=== PATIENT | female | born 1955 | race Caucasian/White ===

== ENCOUNTER 2018-12-19 15:06 | Emergency (ER) | payer OTHER ==
[2018-12-19] MEDS ORDERED: HYDROCODONE/APAP 10/325 TAB ONE (15:47)
--- NOTE | 2018-12-19 15:56 | RAD REPORT ---
EXAM DESCRIPTION: CT - Head Brain Wo Cont - 12/19/2018 3:48 pm CLINICAL HISTORY: Fall, left-sided head trauma COMPARISON: None. TECHNIQUE: Axial 5 mm thick images of the head were obtained without IV contrast. All CT scans are performed using dose optimization technique as appropriate and may include automated exposure control or mA/KV adjustment according to patient size. FINDINGS: No intracranial hemorrhage, mass, edema or shift of mid-line structures. No acute infarcti on changes seen. No abnormal extra-axial fluid collections. Ventricles are normal. Physiologic calcif ications are present. Mastoid air cells are clear. Air-fluid level is present in the right maxillary sinus. This is not true pected to be trauma related. History indicates left-sided head trauma. No acute bony findings. Left deviation of the nasal septum. IMPRESSION: No hemorrhage, edema or acute intracranial finding. Small air-fluid level in the right maxillary sinus. This is probably preexisting sinusitis. Trauma hi story was indicated on the left side.
--- NOTE | 2018-12-19 16:31 | RAD REPORT ---
EXAM DESCRIPTION: RAD - Shoulder Left 2 View - 12/19/2018 4:22 pm CLINICAL HISTORY: Fall, left-sided chest and shoulder pain COMPARISON: None. TECHNIQUE: Internal and external rotation views of the left shoulder were obtained. FINDINGS: An oblique fracture is present through the greater tuberosity. 1- 2 mm of distraction note d along the inferior margin. There is questionable transverse fracture along the surgical neck seen o nly on the internal rotation view. A 5-6 millimeter calcification is present believed to be part of c alcific tendinosis rather than an acute bone avulsion. AC joint is normal in appearance. No acute or suspicious findings. IMPRESSION: Proximal left humerus fracture across the greater tuberosity with suspected transverse f racture at the surgical neck.
--- NOTE | 2018-12-19 16:32 | RAD REPORT ---
EXAM DESCRIPTION: RAD - Humerus Left - 12/19/2018 4:22 pm CLINICAL HISTORY: Fall, left-sided shoulder chest and arm pain COMPARISON: None. FINDINGS: Proximal humerus fracture is detailed on the left shoulder report. There is no dislocation . Shaft and distal humerus are intact. No gross abnormality of the elbow joint. No significant rib or lung parenchymal finding. IMPRESSION: Proximal left humerus fracture is present detailed on left shoulder report. Remainder the humerus is intact.
--- NOTE | 2018-12-19 16:36 | ER ---
Nurse's Notes [facility] Name: Yisel Batista Age: 63 yrs Sex: Female : 1955 Arrival Date: 12/19/2018 Time: 15:08 Bed 14 Private MD: Jace Fraga Diagnosis: Displaced fracture of greater tuberosity of left humerus-with suspected transverse fracture at the surgical neck;Superficial injury of head;Acute sinusitis Presentation: 12/19 15:12 Presenting complaint: Patient states: "I fell down two small steps and I landed on my aa5 left side and hit my left cheondoism on the vacuum immersion metal cleaner". Pt denies LOC. Pt c/o left shoulder pain radiating to left elbow. 15:12 Transition of care: patient was not received from another setting of care. Onset of aa5 symptoms was December 19, 2018 at 14:00. Risk Assessment: Do you want to hurt yourself or someone else? Patient reports no desire to harm self or others. Initial Sepsis Screen: Does the patient meet any 2 criteria? No. Patient's initial sepsis screen is negative. Does the patient have a suspected source of infection? No. Patient's initial sepsis screen is negative. Care prior to arrival: None. 15:12 Acuity: TADEO 3 aa5 15:12 Method Of Arrival: Wheelchair aa5 15:20 Mechanism of Injury: Fall down 2 steps. Trauma event details: Injury occurred in the [address] Triage Assessment: 15:21 General: Appears in no apparent distress. Behavior is calm, cooperative, appropriate [facility]. Pain: Complains of pain in LEFT shoulder. Trauma Activation: Not Applicable Physician: ED Physician; Name: ; Notified At: ; Arrived At: Physician: General Surgeon; Name: ; Notified At: ; Arrived At: Physician: Radiology; Name: ; Notified At: ; Arrived At: Physician: Respiratory; Name: ; Notified At: ; Arrived At: Physician: Lab; Name: ; Notified At: ; Arrived At: Historical: - Allergies: 15:12 No Known Allergies; aa5 - Home Meds: 15:12 Lipitor Oral [Active]; Lunesta oral oral [Active]; aa5 - PMHx: 15:12 Atrial Fib; aa5 - PSHx: 15:12 heart ablation; Hysterectomy; aa5 - Social history:: Smoking status: . - Immunization history: Last tetanus immunization: - up to date. - Ebola Screening: : Patient denies travel to an Ebola-affected area in the 21 days before illness onset. Screenin:13 Abuse screen: Denies threats or abuse. Nutritional screening: No deficits noted. tw2 Tuberculosis screening: No symptoms or risk factors identified. Fall Risk None identified. Primary Survey: 15:19 NO uncontrolled hemorrhage observed. A: The patient is alert. Airway: patent, No tw2 supplemental oxygen in use on arrival. Breathing/Chest: Respiratory pattern: regular, Respiratory effort: spontaneous, unlabored, Breath sounds: clear. Circulation: Heart tones present. Skin temperature: warm, dry. Disability Alert. Exposure/Environment: There is no evidence of uncontrolled external bleeding. Obvious injury(ies) are noted at this time: redness noted to LEFT cheondoism, pt c/o LEFT shoulder pain. 16:57 Reassessment Airway Airway Breathing/Chest Respiratory pattern Regular Respiratory tw2 effort Spontaneous Unlabored Breath sounds Clear Chest inspection Symmetrical Circulation Heart tones Present Color [place] Temperature Warm Dry Disability Alert. Secondary Survey: 16:58 HEENT: Eyes: Edema noted left eyebrow and left upper eyelid. Gastrointestinal: No tw2 deficits noted. : No signs and/or symptoms were reported regarding the genitourinary system. Musculoskeletal: Range of motion: limited in left shoulder. Injury Description: Abrasion sustained to left knee is no bleeding noted. Assessment: 15:11 General: Appears in no apparent distress. Behavior is calm, cooperative, appropriate tw2 for age. Pain: Complains of pain in left shoulder and left upper eyelid and left eyebrow. Neuro: Level of Consciousness is awake, alert, obeys commands, Oriented to person, place, time, situation. Cardiovascular: Denies chest pain, shortness of breath, Heart tones S1 S2 Capillary refill < 3 seconds Patient's skin is warm and dry. Respiratory: Airway is patent Respiratory effort is even, unlabored, Respiratory pattern is regular, symmetrical, Breath sounds are clear bilaterally. GI: No signs and/or symptoms were reported involving the gastrointestinal system. : No signs and/or symptoms were reported regarding the genitourinary system. EENT: Eyes bruising and swelling noted to left eye brow. Derm: No signs and/or symptoms reported regarding the dermatologic system. Musculoskeletal: Circulation, motion, and sensation intact. 17:19 Reassessment: Patient appears in no apparent distress at this time. No changes from tw2 previously documented assessment. Patient and/or family updated on plan of care and expected duration. Pain level reassessed. Patient is alert, oriented x 3, equal unlabored respirations, skin warm/dry/pink. Vital Signs: 15:12 BP 147 / 82; Pulse 80; Resp 16 S; Temp 98.0(TE); Pulse Ox 99% on R/A; Weight 72.57 kg aa5 (R); Height 5 ft. 4 in. (162.56 cm) (R); Pain 8/10; 16:42 BP 140 / 102; Pulse 71; Resp 17; Pulse Ox 98% on R/A; tw2 15:12 Body Mass Index 27.46 (72.57 kg, 162.56 cm) aa5 Alexia Coma Score: 15:20 Eye Response: spontaneous(4). Verbal Response: oriented(5). Motor Response: obeys tw2 commands(6). Total: 15. Trauma Score (Adult): 15:20 Eye Response: spontaneous(1); Verbal Response: oriented(1); Motor Response: obeys tw2 commands(2); Systolic BP: > 89 mm Hg(4); Respiratory Rate: 10 to 29 per min(4); Alexia Score: 15; Trauma Score: 12 ED Course: 15:08 Patient arrived in ED. rg4 15:09 Jace Fraga MD is Private Physician. rg4 15:11 Alma Wilder, RN is Primary Nurse. tw2 15:12 Bed in low position. Call light in reach. Adult w/ patient. animal surgeon on. Pulse tw2 ox on. NIBP on. Warm blanket given. 15:12 Arm band placed on. tw2 15:15 Edis Mahajan NP is PHCP. pm1 15:15 James Llamas MD is Attending Physician. pm1 15:18 Triage completed. aa5 15:21 Patient maintains SpO2 saturation greater than 95% on room air. Thermoregulation: warm tw2 blanket given to patient. 15:47 CT completed. Patient tolerated procedure well. Patient moved to CT via wheelchair. sj Patient moved to radiology Patient moved back from CT. 15:49 CT Head Brain wo Cont In Process Unspecified. EDMS 16:22 Shoulder Left (2 View) XRAY In Process Unspecified. EDMS 16:22 Humerus Left XRAY In Process Unspecified. EDMS 16:32 Uziel Zamora MD is Referral Physician. pm1 16:57 Awaiting for x-ray, Awaiting: reports at this time for pt to take to ortho . tw2 17:02 No provider procedures requiring assistance completed. Patient did not have IV access tw2 during this emergency room visit. Administered Medications: 15:38 Drug: [place] 10 mg-325 mg 1 tabs Route: PO; tw2 16:37 Follow up: Response: No adverse reaction ss Intake: 16:59 PO: 30ml (Water); Total: 30ml. tw2 Outcome: 16:35 Discharge ordered by . pm1 16:57 Condition: stable tw2 16:57 Patient's length of stay in the Emergency Department was greater than 2 hours. d/t imagingPatient's length of stay extended due to 17:18 Discharged to home ambulatory, with significant other. tw2 17:18 Discharge instructions given to patient, significant other, Instructed on discharge instructions, follow up and referral plans. no drinking with medication, no driving heavy equipment, medication usage, Demonstrated understanding of instructions, follow-up care, medications. 17:19 Patient left the ED. tw2 Signatures: Dispatcher [employer] Tory Colbert Audri, RN RN aa5 Zayda Mike RN RN ss Edis Mahajan, MICROELECTRONICS TECHNICIAN MICROELECTRONICS TECHNICIAN pm1 Alma Wilder RN RN tw2 Brielle Martinez rg4
--- NOTE | 2018-12-19 16:36 | EDPHYS ---
Physician Documentation [facility] Name: Yisel Batista Age: 63 yrs Sex: Female : 1955 Arrival Date: 12/19/2018 Time: 15:08 Bed 14 Private MD: Jace Fraga ED Physician James Llamas HPI: 12/19 15:41 This 63 yrs old Female presents to ER via Wheelchair with complaints of Fall pm1 Injury. 15:41 Details of fall: The patient fell from an upright position, while walking. Onset: The pm1 symptoms/episode began/occurred just prior to arrival. Associated injuries: The patient sustained outer aspect of left eyebrow, contusion, hematoma, anterior aspect of left shoulder, pain, left knee, abrasion. Severity of symptoms: in the emergency department the symptoms are unchanged. The patient has not experienced similar symptoms in the past. The patient has not recently seen a physician. Patient was walking out the porch and tripped down two stairs. She hit her head against the [employer] vacuum waste cotton cleaner and landed on her left side. Complaining of pain to left shoulder . Historical: - Allergies: 15:12 No Known Allergies; aa5 - Home Meds: 15:12 Lipitor Oral [Active]; Lunesta oral oral [Active]; aa5 - PMHx: 15:12 Atrial Fib; aa5 - PSHx: 15:12 heart ablation; Hysterectomy; aa5 - Social history:: Smoking status: . - Immunization history: Last tetanus immunization: - up to date. - Ebola Screening: : Patient denies travel to an Ebola-affected area in the 21 days before illness onset. ROS: 15:41 Constitutional: Negative for fever, chills, and weight loss, Eyes: Negative for injury, pm1 pain, redness, and discharge, ENT: Negative for injury, pain, and discharge, Neck: Negative for injury, pain, and swelling, Cardiovascular: Negative for chest pain, palpitations, and edema, Respiratory: Negative for shortness of breath, cough, wheezing, and pleuritic chest pain, Abdomen/GI: Negative for abdominal pain, nausea, vomiting, diarrhea, and constipation, Back: Negative for injury and pain, : Negative for injury, bleeding, discharge, and swelling. 15:41 Neuro: Negative for headache, weakness, numbness, tingling, and seizure. 15:41 MS/extremity: Positive for pain, of the anterior aspect of left shoulder. 15:41 Skin: Positive for ecchymosis, swelling, of the outer aspect of left eyebrow. Exam: 15:41 Constitutional: This is a well developed, well nourished patient who is awake, alert, pm1 and in no acute distress. Head/Face: Normocephalic, atraumatic. Eyes: Pupils equal round and reactive to light, extra-ocular motions intact. Lids and lashes normal. Conjunctiva and sclera are non-icteric and not injected. Cornea within normal limits. Periorbital areas with no swelling, redness, or edema. ENT: Nares patent. No nasal discharge, no septal abnormalities noted. Tympanic membranes are normal and external auditory canals are clear. Oropharynx with no redness, swelling, or masses, exudates, or evidence of obstruction, uvula midline. Mucous membranes moist. Neck: Trachea midline, no thyromegaly or masses palpated, and no cervical lymphadenopathy. Supple, full range of motion without nuchal rigidity, or vertebral point tenderness. No Meningismus. Chest/axilla: Normal chest wall appearance and motion. Nontender with no deformity. No lesions are appreciated. Cardiovascular: Regular rate and rhythm with a normal S1 and S2. No gallops, murmurs, or rubs. Normal PMI, no JVD. No pulse deficits. Respiratory: Lungs have equal breath sounds bilaterally, clear to auscultation and percussion. No rales, rhonchi or wheezes noted. No increased work of breathing, no retractions or nasal flaring. Abdomen/GI: Soft, non-tender, with normal bowel sounds. No distension or tympany. No guarding or rebound. No evidence of tenderness throughout. Back: No spinal tenderness. No costovertebral tenderness. Full range of motion. 15:41 Musculoskeletal/extremity: Extremities: grossly normal except: noted in the proximal aspect of left humerus: pain, tenderness, There is no evidence of deformity. 15:41 Skin: Appearance: normal except for affected area, injury, contusion(s), that are superficial, of the outer aspect of left eyebrow. 15:41 Neuro: Orientation: is normal, Motor: is normal, moves all fours. Vital Signs: 15:12 BP 147 / 82; Pulse 80; Resp 16 S; Temp 98.0(TE); Pulse Ox 99% on R/A; Weight 72.57 kg aa5 (R); Height 5 ft. 4 in. (162.56 cm) (R); Pain 8/10; 16:42 BP 140 / 102; Pulse 71; Resp 17; Pulse Ox 98% on R/A; tw2 15:12 Body Mass Index 27.46 (72.57 kg, 162.56 cm) aa5 Alexia Coma Score: 15:20 Eye Response: spontaneous(4). Verbal Response: oriented(5). Motor Response: obeys tw2 commands(6). Total: 15. Trauma Score (Adult): 15:20 Eye Response: spontaneous(1); Verbal Response: oriented(1); Motor Response: obeys tw2 commands(2); Systolic BP: > 89 mm Hg(4); Respiratory Rate: 10 to 29 per min(4); [place] Score: 15; Trauma Score: 12 MDM: 15:27 Patient medically screened. pm1 16:31 Data reviewed: vital signs. Data interpreted: Pulse oximetry: on room air is 99 %. pm1 Interpretation: normal. Counseling: I had a detailed discussion with the patient and/or guardian regarding: the historical points, exam findings, and any diagnostic results supporting the discharge/admit diagnosis, radiology results, the need for outpatient follow up, for definitive care, a orthopedic surgeon, to return to the emergency department if symptoms worsen or persist or if there are any questions or concerns that arise at home. 12/19 15:37 Order name: Shoulder Left (2 View) XRAY; Complete Time: 16:40 pm1 12/19 15:37 Order name: CT Head Brain wo Cont; Complete Time: 16:06 pm1 12/19 15:37 Order name: Humerus Left XRAY; Complete Time: 16:40 pm1 12/19 15:37 Order name: Shoulder Immobilizer; Complete Time: 16:37 pm1 Administered Medications: 15:38 Drug: [place] 10 mg-325 mg 1 tabs Route: PO; tw2 16:37 Follow up: Response: No adverse reaction ss Disposition: 12/20 07:14 Co-signature as Attending Physician, James Llamas MD I agree with the assessment and kdr plan of care. Disposition: 12/19/18 16:35 Discharged to Home. Impression: Displaced fracture of greater tuberosity of left humerus - with suspected transverse fracture at the surgical neck, Superficial injury of head, Acute sinusitis. - Condition is Stable. - Discharge Instructions: Humerus Fracture Treated With Immobilization, How to Use a Shoulder Immobilizer, Sinusitis, Adult. - Prescriptions for Tylenol- Codeine #3 300-30 mg Oral Tablet - take 2 tablets by ORAL route every 6 hours As needed; 20 tablet. Amoxicillin 500 mg Oral Capsule - take 1 capsule by ORAL route every 8 hours for 10 days; 30 tablet. - Medication Reconciliation Form, Thank You Letter, Antibiotic Education, Prescription Opioid Use form. - Follow up: Emergency Department; When: As needed; Reason: Worsening of condition. Follow up: Uziel Zamora MD; When: 2 - 3 days; Reason: Recheck today's complaints, Continuance of care, Re-evaluation by your physician. - Problem is new. - Symptoms have improved. Signatures: Dispatcher [employer] EDMS James Llamas MD MD [facility] Stephanie Marcelo RN RN aa5 Edis Mahajan NP SPEECH SCIENTIST pm1 Alma Wilder RN RN tw2 Zayda Mike RN ss Corrections: (The following items were deleted from the chart) 12/19 16:40 16:35 12/19/2018 16:35 Discharged to Home. Impression: Displaced fracture of greater pm1 tuberosity of left humerus - mildly displaced. Condition is Stable. Forms are Medication Reconciliation Form, Thank You Letter, Antibiotic Education, Prescription Opioid Use. Follow up: Emergency Department; When: As needed; Reason: Worsening of condition. Follow up: Uziel Zamora; When: 2 - 3 days; Reason: Recheck today's complaints, Continuance of care, Re-evaluation by your physician. Problem is new. Symptoms have improved. pm1 16:42 16:40 12/19/2018 16:35 Discharged to Home. Impression: Displaced fracture of greater pm1 tuberosity of left humerus - mildly displaced; Superficial injury of head; Acute sinusitis. Condition is Stable. Discharge Instructions: Humerus Fracture Treated With Immobilization, How to Use a Shoulder Immobilizer, Sinusitis, Adult. Prescriptions for Tylenol-Codeine #3 300-30 mg Oral Tablet - take 2 tablets by ORAL route every 6 hours As needed; 20 tablet, Amoxicillin 500 mg Oral Capsule - take 1 capsule by ORAL route every 8 hours for 10 days; 30 tablet. and Forms are Medication Reconciliation Form, Thank You Letter, Antibiotic Education, Prescription Opioid Use. Follow up: Emergency Department; When: As needed; Reason: Worsening of condition. Follow up: Uziel Zamora; When: 2 - 3 days; Reason: Recheck today's complaints, Continuance of care, Re-evaluation by your physician. Problem is new. Symptoms have improved. pm1 17:19 16:42 12/19/2018 16:35 Discharged to Home. Impression: Displaced fracture of greater tw2 tuberosity of left humerus - with suspected transverse fracture at the surgical neck; Superficial injury of head; Acute sinusitis. Condition is Stable. Discharge Instructions: Humerus Fracture Treated With Immobilization, How to Use a Shoulder Immobilizer, Sinusitis, Adult. Prescriptions for Tylenol-Codeine #3 300-30 mg Oral Tablet - take 2 tablets by ORAL route every 6 hours As needed; 20 tablet, Amoxicillin 500 mg Oral Capsule - take 1 capsule by ORAL route every 8 hours for 10 days; 30 tablet. and Forms are Medication Reconciliation Form, Thank You Letter, Antibiotic Education, Prescription Opioid Use. Follow up: Emergency Department; When: As needed; Reason: Worsening of condition. Follow up: Uziel Zamora; When: 2 - 3 days; Reason: Recheck today's complaints, Continuance of care, Re-evaluation by your physician. Problem is new. Symptoms have improved. pm1
== END 2018-12-19 17:19 | disposition home or self-care (01) ==
LOC: ER 15:06
DX: S42.252A Displaced fracture of greater tuberosity of left humerus, initial encounter for closed fracture (principal); S00.90XA Unspecified superficial injury of unspecified part of head, initial encounter; W10.8XXA Fall (on) (from) other stairs and steps, initial encounter; Y93.01 Activity, walking, marching and hiking; J01.90 Acute sinusitis, unspecified
CPT/HCPCS: 70450; 99285

== ENCOUNTER 2021-04-19 10:06 | Emergency (ER) | payer OTHER ==
--- OUTSIDE RECORDS SUMMARY | 2021-04-19 10:09 | XMS REPORT | Continuity of Care Document ---
:1955 Author Organization [facility] t Address [address] [place] [address] Care Team Providers Name Role Phone Addy Fraga MD Primary Care Physician Brice RUFF Attending Clinician Vince RUFF, José Manuel Attending Clinician Payers Payer Name Policy Type Policy Number Effective Date Expiration Date S ource Problems This patient has no known problems. Allergies, Adverse Reactions, Alerts Allergy Allergy Status Severity Reaction(s) Onset Inactive Treating Comm ents Source Name Type Date Date Clinician SURGICAL DA Active SV 2018-10 [facility] TAPE/ 2-13 Clear GLUE 00:00: Null 00 [facility] Adhesive Propensi Active Itching, 2018-10 Adhesive [place] Tape-Debby ty to Rash 2-09 tapes and Metho di icones adverse 00:00: ekg st reaction 00 electrode s to s causes drug bad rash Social History Social Habit Start Date Stop Date Quantity Comments Source Sex Assigned At [birth year] [facility] 00:00:00 00:00:00 Medications Ordered Filled Start Stop Current Ordering Indication Dosage Frequency Signature Comments Components Source Medication Medication Date Date Medication? Clinician (SIG) Name Name calcium 2018-10 Yes 1{tbl} QD Take 1 [place] carbonate/v 2-10 tablet by Met vickii itamin D3 14:17: mouth st (CALCIUM 02 daily. 600 + D,3, ORAL) cholecalcif 2018-10 Yes 2000U QD Take 2,000 [facility] estrada, 2-10 Units by Methodi vitamin D3, 14:17: mouth st (VITAMIN 02 daily. D3) 2,000 unit tablet Lactobac 2018-10 Yes 1{tbl} QD Take 1 [place] no.41/Bifid 2-10 tablet by Met vickii obact no.7 14:17: mouth st (PROBIOTIC- 02 daily. 10 ORAL) KRILL OIL 2018-10 Yes 700mg QD Take [address] ORAL 2-10 mg by Methodi 14:17: mouth st 02 daily. multivitami 2018-10 Yes 1{tbl} QD Take 1 [place] with 2-10 tablet by [facility] minerals 14:17: mouth st tablet 02 daily. biotin 2018-10 Yes 1{capsu Take 1 [place] 10,000 mcg 2-10 le} capsule by Met vickii capsule 14:17: mouth. st 02 FOLIC ACID 2018-10 Yes 800ug QD Take 800 [place] ORAL 2-10 mcg by Methodi 14:17: mouth st 02 daily. magnesium 2018-10 Yes 1{tbl} QD Take 1 [place] 250 mg 2-10 tablet by Methodi tablet 14:17: mouth st 02 daily. atorvastati 2018-10 Yes 10mg QD Take 10 mg [place] n (LIPITOR) 2-10 by mouth Meth shamika 10 MG 14:17: daily. st tablet 02 etodolac 2018-10 Yes 500mg Take 500 [place] (LODINE XL) 2-10 mg by Methodi 500 MG 24 14:17: mouth as st hr tablet 02 needed. eszopiclone 2018-10 Yes 1.5mg QD Take 1.5 [place] (LUNESTA) 3 2-10 mg by Methodi mg tablet 14:17: mouth st 02 nightly. Take immediatel y before bedtime aspirin 2018-10 Yes 81mg Take 81 mg [place] (ECOTRIN) 2-10 by mouth. Metho di 81 MG 14:17: Taking st enteric 02 every 3rd coated day tablet coenzyme 2018-10 Yes 200mg QD Take 200 [place] Q10 200 mg 2-10 mg by Methodi capsule 14:17: mouth st 02 daily. Procedures This patient has no known procedures. Encounters Start End Encounter Admission Attending Care Care Encounter Source Date/Time Date/Time Type Type Clinicians Facility Department ID 2020-11-16 2020-11-16 Emergency CHERYL Narvaez [id number] 07:29:00 16:50:00 Kareem Ayers [id number] [place] [id number] [place] [id number] 2020-08-17 2020-08-17 Office CLARK Clarke [id number] 09:13:26 10:39:12 Visit Aracely Georges AMBULATOR [id number] Y [id number] Results Test Description Test Time Test Comments Results Result Comments Source HGB HCT 2019-09-17 05:08:00 Test Item Value Reference Range Interpretation Comme nts HEMOGLOBIN (test code = HGB) 12.5 g/dL 10.7-13.9 N HEMATOCRIT (test code = HCT) 38.6 % 32.1-42.1 N AB HIV 1 12:44:00 Test Item Value Reference Range Interpretation Comments AB HIV 1 2 (test code = NONREACTIVE INDEX NONREACTIVE [id number]) IS CONSENT FORM SIGNED FOR HIV TESTING? YAG HEPATITIS B [id number] 12:44:00 Test Item Value Reference Range Interpretation Comments AG HEPATITIS B SURFACE (test code NONREACTIVE NONREACTIVE = HBSAG) IS CONSENT FORM SIGNED FOR HIV TESTING? YAB HEPATITIS C [id number] 12:44:00 Test Item Value Reference Range Interpretation Comments AB HEPATITIS C (test code = NONREACTIVE NONREACTIVE HCVAB) SIGNAL TO CUTOFF (test code = 0.02 <0.80 N CUTOFF) IS CONSENT FORM SIGNED FOR HIV TESTING? YAB HIV 1 12:44:00 Test Item Value Reference Range Interpretation Comments AB HIV 1 2 (test code = NONREACTIVE INDEX NONREACTIVE [id number]) IS CONSENT FORM SIGNED FOR HIV TESTING? YAG HEPATITIS B [id number] 17:57:00 Test Item Value Reference Range Interpretation Comments AG HEPATITIS B SURFACE (test code NONREACTIVE NONREACTIVE = HBSAG) IS CONSENT FORM SIGNED FOR HIV TESTING? YAB HEPATITIS C [id number] 17:57:00 Test Item Value Reference Range Interpretation Comments AB HEPATITIS C (test code = NONREACTIVE NONREACTIVE HCVAB) SIGNAL TO CUTOFF (test code = 0.02 <0.80 N CUTOFF) IS CONSENT FORM SIGNED FOR HIV TESTING? YAB HIV 1 17:57:00 Test Item Value Reference Range Interpretation Comments AB HIV 1 2 (test code = [id number]) NONREACTIVE IS CONSENT FORM SIGNED FOR HIV TESTING? YCHEMISTRY 7 [id number] 15:22:00 Test Item Value Reference Range Interpretation Comments SODIUM (test code = NA) 143 mEq/L 135-145 N POTASSIUM (test code = K) 4.7 mEq/L 3.5-5.0 N CHLORIDE (test code = CL) 105 mEq/L 100-115 N CARBON DIOXIDE (test code = CO2) 29 mEq/L 22-31 N ANION GAP (test code = GAP) 13.30 10-20 N GLUCOSE (test code = GLU) 70 mg/dL 65-110 N BLOOD UREA NITROGEN (test code = 19 mg/dL 7-18 H BUN) GLOMERULAR FILTRATION RATE (test 85 ml/min >60 N code = GFR) CREATININE (test code = CREAT) 0.7 mg/dL 0.5-1.0 N CALCIUM (test code = CA) 9.5 mg/dL 8.4-10.2 N URINALYSIS [id number] 14:39:00 Test Item Value Reference Range Interpretation Comments UA COLOR (test code = COLU) ORALIA YELLOW A UA APPEARANCE (test code = CLOUDY CLEAR A APPU) UA GLUCOSE DIPSTICK (test NEGATIVE NEG code = DGLUU) UA BILIRUBIN DIPSTICK (test NEGATIVE NEG code = BILU) UA KETONE DIPSTICK (test code NEGATIVE NEG = KETU) UA SPECIFIC GRAVITY (test 1.015 1.001-1.035 N code = SGU) UA BLOOD DIPSTICK (test code NEG NEG = ROBERTO CARLOS) UA PH DIPSTICK (test code = 7.0 5-9 CHRISSY) UA PROTEIN DIPSTICK (test NEGATIVE NEG code = PROU) UA UROBILINIOGEN DIPSTICK NEGATIVE mg/dL NEG (test code = URO) UA NITRITE DIPSTICK (test NEG NEG code = WANDA) UA LEUKOCYTE ESTERASE NEG NEG DIPSTICK (test code = LEUU) UA WBC (test code = WBCU) NONE SEEN #/hpf NONE SEEN UA EPITHELIAL CELLS (test RARE #/HPF RARE-FEW code = EPIU) UA AMORPHOUS SEDIMENT (test FEW code = AMORU) URINE SAMPLE: CLEAN CATCHCBC W/AUTO [id number] 14:24:00 Test Item Value Reference Range Interpretation Comments WHITE BLOOD CELL (test code = WBC) 9.2 K/mm3 6.6-12.1 N RED BLOOD CELL (test code = RBC) 5.08 M/mm3 3.45-5.01 H HEMOGLOBIN (test code = HGB) 14.8 g/dL 10.7-13.9 H HEMATOCRIT (test code = HCT) 46.0 % 32.1-42.1 H MEAN CELL VOLUME (test code = MCV) 91 fL 84.1-94.8 N MEAN CELL HGB (test code = MCH) 29.1 pg 27-35 N MEAN CELL HGB CONCETRATION (test 32.2 gm/dL 32.2-34.1 N code = MCHC) RED CELL DISTRIBUTION WIDTH (test 12.1 % 12.4-16.5 L code = RDW) PLATELET COUNT (test code = PLT) 373 K/mm3 133-385 N IMMATURE PLATELET FRACTION (test 0.0 % 0.0-10.8 N code = IPF) MEAN PLATELET VOLUME (test code = 9.3 fl 9.1-12.7 N MPV) NEUTROPHIL % (test code = NT%) 52.7 % 56.5-79.4 L LYMPHOCYTE % (test code = LY%) 33.7 % 14.3-34.3 N MONOCYTE % (test code = MO%) 10.8 % 5.1-10.4 H EOSINOPHIL % (test code = EO%) 1.7 % 0.1-3.0 N BASOPHIL % (test code = BA%) 0.9 % 0.1-1.0 N NEUTROPHIL # (test code = NT#) 4.8 K/mm3 LYMPHOCYTE # (test code = LY#) 3.1 K/mm3 MONOCYTE # (test code = MO#) 1.0 K/mm3 EOSINOPHIL # (test code = EO#) 0.16 K/mm3 BASOPHIL # (test code = BA#) 0.1 K/mm3 RBC MORPHOLOGY REQUIRED (test code NORMAL NORMAL = RBCM) PLATELET MORPHOLOGY REQUIRED (test NORMAL NORMAL code = PLTMR) - XR CHEST 2 [id number] 13:58:00 Patient Name: CARA MOREIRA Unit No: [id number] EXAMS: CPT CODE: [id number] XR CHEST 2 V 78121 2 view chest x-ray performed September 12, 2019. COMPARISON: none. CLINICAL HI STORY: PREOP. DISCUSSION: 2 views/ films of the chest are submitted. Fixation hardware is seen of the lower cervical spine Small 16 mm increased density in the right cardio phrenic angle which may be due to pericardial fat pad, cyst or hernia. The remainder the lungs are clear. Cardiomediastinal silhouette is normal. No acute osseous abnormality seen IMPRESSION: Small 16 mm density in right cardiophrenic angle otherwise lungs are clear at 1358 Reported and signed by: Inés Santillan MD CC: Amada Marr Technologist: Emeli Jarquin, RT(MRI) Trnscrbd D/ (9832) t.JOSÉ LUISR.NMGOrig Print D/T: S: 09/12/2019 (1513) [facility] NAME: CARA MOREIRA Radiology Department PHYS: Amada Toscano MD [address] : 1955 AGE: 64 SEX: F [place], [place] [address] LOC: JULISSA PHONE #: [phone] EXAM DATE: 09/12/2019 STATUS: PRE SD FAX #: [phone] RAD NO: [id number] Page 1 Signed Report
[2021-04-19 11:10] LABS: Absolute Lymphocytes (CBC) 1.8 K/uL (0.7-4.9); Basophils % 0.6 % (0-1.3); Hematocrit 42.7 % (36.0-45.0); Lymphocytes % 29.5 % (15.3-44.8); MPV 7.5 fL (7.6-11.3)
[2021-04-19 11:13] LABS: Protime INR 1.03
[2021-04-19 11:36] LABS: ALT/SGPT 25 U/L (12-78); AST/SGOT 16 U/L (15-37); Albumin 3.8 g/dL (3.4-5.0); Alkaline Phosphatase 81 U/L (45-117); BUN Blood Urea Nitrogen 17 mg/dL (7-18); Bicarbonate 24 mmol/L (21-32); Bilirubin Direct 0.2 mg/dL (0-0.2); Bilirubin Total 0.6 mg/dL (0.2-1.0); Glucose Level 137 mg/dL (74-106); Magnesium 2.3 mg/dL (1.8-2.4); NT PRO-BNP 128 pg/mL (<125); Potassium 3.9 mmol/L (3.5-5.1); Protein, Total 7.1 g/dL (6.4-8.2); Sodium Level 139 mmol/L (136-145); Troponin (Emerg Dept Use Only) < 0.02 ng/mL (0.0-0.045)
--- NOTE | 2021-04-19 11:40 | RAD REPORT ---
EXAM DESCRIPTION: RAD - Chest Single View - 04/19/2021 11:15 am CLINICAL HISTORY: PALPITATIONS Chest pain. COMPARISON: No comparisonsNo comparisons FINDINGS: Portable technique limits examination quality. The lungs are grossly clear. The heart is normal in size. No displaced fractures. IMPRESSION: No acute intrathoracic process suspected.
--- NOTE | 2021-04-19 13:42 | EDPHYS ---
Physician Documentation [facility] Name: Yisel Batista Age: 65 yrs Sex: Female : 1955 Arrival Date: 04/19/2021 Time: 10:08 Bed 15 Private MD: ED Physician James Llamas HPI: 04/19 12:39 This 65 yrs old Female presents to ER via Ambulatory with complaints of kdr Irregular Pulse. 12:39 The patient presents with a history of irregular heart beat, . Context: The symptoms kdr occur at rest. Onset: The symptoms/episode began/occurred suddenly, 3 day(s) ago. Duration: The patient or guardian reports multiple episodes, that are intermittent, that wax and wane, with no pattern. Modifying factors: The symptoms are aggravated by nothing. The symptoms are alleviated by nothing. Severity of symptoms: At their worst the symptoms were mild in the emergency department the symptoms are unchanged. The patient has experienced similar episodes in the past, multiple times. The patient has not recently seen a physician. Historical: - Allergies: 10:17 No Known Allergies; ss - PMHx: 10:17 Atrial Fib; High cholesterol; ss - PSHx: 10:17 Cardiac Ablation; ss - Immunization history:: Adult Immunizations up to date, Client reports having NOT received the Covid vaccine. - Social history:: Smoking status: Patient denies any tobacco usage or history of. ROS: 12:39 Constitutional: Negative for fever, chills, and weight loss, Eyes: Negative for injury, kdr pain, redness, and discharge, ENT: Negative for injury, pain, and discharge, Neck: Negative for injury, pain, and swelling, Respiratory: Negative for shortness of breath, cough, wheezing, and pleuritic chest pain, Abdomen/GI: Negative for abdominal pain, nausea, vomiting, diarrhea, and constipation, Back: Negative for injury and pain, : Negative for injury, bleeding, discharge, and swelling, MS/Extremity: Negative for injury and deformity, Skin: Negative for injury, rash, and discoloration, Neuro: Negative for headache, weakness, numbness, tingling, and seizure activity. Psych: Negative for depression, anxiety, suicide ideation, homicidal ideation, and hallucinations, Allergy/Immunology: Negative for hives, rash, and allergies, Endocrine: Negative for neck swelling, polydipsia, polyuria, polyphagia, and marked weight changes, Hematologic/Lymphatic: Negative for swollen nodes, abnormal bleeding, and unusual bruising. 12:39 Cardiovascular: Positive for palpitations, Negative for chest pain, edema, orthopnea, acute changes. Exam: 12:39 Constitutional: This is a well developed, well nourished patient who is awake, alert, kdr and in no acute distress. Head/Face: Normocephalic, atraumatic. Eyes: Pupils equal round and reactive to light, extra-ocular motions intact. Lids and lashes normal. Conjunctiva and sclera are non-icteric and not injected. Cornea within normal limits. Periorbital areas with no swelling, redness, or edema. Neck: Trachea midline, no thyromegaly or masses palpated, and no cervical lymphadenopathy. Supple, full range of motion without nuchal rigidity, or vertebral point tenderness. No Meningismus. Chest/axilla: Normal chest wall appearance and motion. Nontender with no deformity. No lesions are appreciated. Respiratory: Lungs have equal breath sounds bilaterally, clear to auscultation and percussion. No rales, rhonchi or wheezes noted. No increased work of breathing, no retractions or nasal flaring. Abdomen/GI: Soft, non-tender, with normal bowel sounds. No distension or tympany. No guarding or rebound. No evidence of tenderness throughout. Back: No spinal tenderness. No costovertebral tenderness. Full range of motion. Skin: Warm, dry with normal turgor. Normal color with no rashes, no lesions, and no evidence of cellulitis. MS/ Extremity: Pulses equal, no cyanosis. Neurovascular intact. Full, normal range of motion. Neuro: Awake and alert, GCS 15, oriented to person, place, time, and situation. Cranial nerves II-XII grossly intact. Motor strength 5/5 in all extremities. Sensory grossly intact. Cerebellar exam normal. Normal gait. Psych: Awake, alert, with orientation to person, place and time. Behavior, mood, and affect are within normal limits. 12:39 Cardiovascular: Rate: normal, Rhythm: regular, Pulses: no pulse deficits are appreciated, Heart sounds: murmur, systolic, grade 2 over 6. 12:39 ECG was reviewed by the Attending Physician. Vital Signs: 10:15 BP 119 / 78; Pulse 69; Resp 16; Temp 98.6(O); Pulse Ox 97% on R/A; Weight 69.85 kg; ss Height 5 ft. 4 in. (162.56 cm); Pain 0/10; 11:50 BP 118 / 60; Pulse 72; Resp 17; Pulse Ox 100% on R/A; tw2 12:53 BP 116 / 69; Pulse 84; Resp 14; Pulse Ox 100% on R/A; tw2 10:15 Body Mass Index 26.43 (69.85 kg, 162.56 cm) ss MDM: 13:41 Patient medically screened. kdr 19:02 Data reviewed: vital signs, nurses notes, lab test result(s), radiologic studies. kdr Counseling: I had a detailed discussion with the patient and/or guardian regarding: the historical points, exam findings, and any diagnostic results supporting the discharge/admit diagnosis, lab results, radiology results, the need for outpatient follow up. 04/19 10:13 Order name: Basic Metabolic Panel; Complete Time: 12: kdr 04/19 10:13 Order name: CBC with Diff; Complete Time: 12: kdr 04/19 10:13 Order name: LFT's; Complete Time: 12: kdr 04/19 10:13 Order name: Magnesium; Complete Time: 12: kdr 04/19 10:13 Order name: NT PRO-BNP; Complete Time: 12: kdr 04/19 10:13 Order name: PT-INR; Complete Time: 12:37 kdr 04/19 10:13 Order name: Troponin (emerg Dept Use Only); Complete Time: 12: kdr 04/19 10:13 Order name: XRAY Chest (1 view); Complete Time: 12:37 kdr 04/19 10:13 Order name: EKG; Complete Time: 10:14 kdr 04/19 10:13 Order name: Cardiac monitoring; Complete Time: 10: kdr 04/19 10:13 Order name: EKG - Nurse/Tech; Complete Time: : kdr 04/19 10:13 Order name: IV Saline Lock; Complete Time: : kdr 04/19 10:13 Order name: Labs collected and sent; Complete Time: : kdr 04/19 10:13 Order name: O2 Per Protocol; Complete Time: :13 kdr 04/19 10:13 Order name: O2 Sat Monitoring; Complete Time: 10:13 kdr 04/19 12:37 Order name: EKG Strip; Complete Time: 13:47 kdr EC:39 Rate is 83 beats/min. Rhythm is regular, Sinus Rhythm with Occasional PVCs. Clinical kdr impression: NSR w/ Non-specific ST/T Changes. Administered Medications: No medications were administered Disposition Summary: 04/19/21 13:41 Discharge Ordered Location: Home kdr Problem: an ongoing problem kdr Symptoms: have improved kdr Condition: Stable kdr Diagnosis - Palpitations kdr - Ventricular premature depolarization kdr Followup: kdr - With: Private Physician - When: 2 - 3 days - Reason: If symptoms return, Further diagnostic work-up, Recheck today's complaints, Continuance of care, Re-evaluation by your physician Discharge Instructions: - Discharge Summary Sheet kdr - Premature Ventricular Contraction kdr - Palpitations, [id number] kdr Forms: - Medication Reconciliation Form kdr - Thank You Letter kdr Signatures: Dispatcher [employer] James Thurston MD MD kdr Zayda Mike RN RN ss
--- NOTE | 2021-04-19 13:42 | ER ---
Nurse's Notes [facility] Name: Yisel Batista Age: 65 yrs Sex: Female : 1955 Arrival Date: 04/19/2021 Time: 10:08 Bed 15 Private MD: Diagnosis: Palpitations;Ventricular premature depolarization Presentation: 04/19 10:15 Chief complaint: Patient states: "I think I have been in AFIB since Sunday. I had an ss ablation 8 years ago and have had some episodes in the past few years, but it goes away. 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 Coronavirus screen: Client denies travel out of the [place] in the last 14 days. Ebola Screen: Patient denies exposure to infectious person. Patient denies travel to an Ebola-affected area in the 21 days before illness onset. Initial Sepsis Screen: Does the patient meet any 2 criteria? No. Patient's initial sepsis screen is negative. Does the patient have a suspected source of infection? No. Patient's initial sepsis screen is negative. Risk Assessment: Do you want to hurt yourself or someone else? Patient reports no desire to harm self or others. Onset of symptoms was April 17, 2021. 10:15 Method Of Arrival: Ambulatory ss 10:15 Acuity: TADEO 3 ss Historical: - Allergies: 10:17 No Known Allergies; ss - PMHx: 10:17 Atrial Fib; High cholesterol; ss - PSHx: 10:17 Cardiac Ablation; ss - Immunization history:: Adult Immunizations up to date, Client reports having NOT received the Covid vaccine. - Social history:: Smoking status: Patient denies any tobacco usage or history of. Screenin:13 Abuse screen: Denies threats or abuse. Nutritional screening: No deficits noted. tw2 Tuberculosis screening: No symptoms or risk factors identified. Fall Risk None identified. Assessment: 10:23 General: Appears in no apparent distress. slender, well groomed, Behavior is calm, tw2 cooperative, appropriate for age. Pain: Denies pain. Pain does not radiate. Pain began 2-3 days ago. Neuro: Level of Consciousness is awake, alert, obeys commands, Oriented to person, place, time, situation. Cardiovascular: Reports palpitations, Capillary refill < 3 seconds Patient's skin is warm and dry. Respiratory: Airway is patent Respiratory effort is even, unlabored, Respiratory pattern is regular, symmetrical. GI: No signs and/or symptoms were reported involving the gastrointestinal system. : No signs and/or symptoms were reported regarding the genitourinary system. Derm: No signs and/or symptoms reported regarding the dermatologic system. Musculoskeletal: Circulation, motion, and sensation intact. Range of motion: intact in all extremities. 11:50 Reassessment: Patient appears in no apparent distress at this time. No changes from tw2 previously documented assessment. Patient and/or family updated on plan of care and expected duration. Pain level reassessed. Patient is alert, oriented x 3, equal unlabored respirations, skin warm/dry/pink. 12:53 Reassessment: Patient appears in no apparent distress at this time. No changes from tw2 previously documented assessment. Patient and/or family updated on plan of care and expected duration. Pain level reassessed. Patient is alert, oriented x 3, equal unlabored respirations, skin warm/dry/pink. 13:30 Reassessment: provider at bedside at this time. tw2 13:48 Reassessment: Patient appears in no apparent distress at this time. No changes from tw2 previously documented assessment. Patient and/or family updated on plan of care and expected duration. Pain level reassessed. Patient is alert, oriented x 3, equal unlabored respirations, skin warm/dry/pink. Vital Signs: 10:15 BP 119 / 78; Pulse 69; Resp 16; Temp 98.6(O); Pulse Ox 97% on R/A; Weight 69.85 kg; Height 5 ft. 4 in. (162.56 cm); Pain 0/10; 11:50 BP 118 / 60; Pulse 72; Resp 17; Pulse Ox 100% on R/A; tw2 12:53 BP 116 / 69; Pulse 84; Resp 14; Pulse Ox 100% on R/A; tw2 10:15 Body Mass Index 26.43 (69.85 kg, 162.56 cm) ED Course: 10:08 Patient arrived in ED. ss 10:12 Alma Wilder RN is Primary Nurse. tw2 10:13 James Llamas MD is Attending Physician. kdr 10:13 Placed in gown. Bed in low position. Call light in reach. Adult w/ patient. Cardiac tw2 monitor on. Pulse ox on. NIBP on. Warm blanket given. 10:17 Triage completed. ss 10:17 Arm band placed on right wrist. ss 10:23 Inserted saline lock: 20 gauge in left antecubital area, using aseptic technique. Blood tw2 collected. Patient maintains SpO2 saturation greater than 95% on room air. 11:15 XRAY Chest (1 view) In Process Unspecified. EDMS 13:47 No provider procedures requiring assistance completed. IV discontinued, intact, tw2 bleeding controlled, No redness/swelling at site. Pressure dressing applied. Administered Medications: No medications were administered Outcome: 13:41 Discharge ordered by . kdr 13:47 Discharged to home ambulatory, with significant other. tw2 13:47 Condition: stable 13:47 Discharge instructions given to patient, significant other, Instructed on discharge instructions, follow up and referral plans. Demonstrated understanding of instructions, follow-up care. 13:48 Patient left the ED. tw2 Signatures: Dispatcher [employer] EDKS James Llamas MD MD [facility] Zayda Mike, RN RN Alma Parra, RN RN tw2
[2021-04-19 13:56] VITALS: TEMP 98.6
[2021-04-19 13:58] VITALS: O2SAT 100
[2021-04-19 14:00] VITALS: BP 116/69
--- NOTE | 2021-04-20 10:43 | EKG ---
Test Date: 2021-04-19 Test Time: 13:26:30 Commuter Train Operator: DEMI MEASUREMENT RESULTS: Intervals: Rate: 66 SC: 148 QRSD: 78 QT: 406 QTc: 425 [place]: P: 44 SC: 148 QRS: -23 T: 36 INTERPRETIVE STATEMENTS: Sinus rhythm with occasional premature ventricular complexes Cannot rule out Anterior infarct, age undetermined Abnormal ECG Compared to ECG 04/19/2021 10:14:49 Myocardial infarct finding now present Electronically Signed On 04-20-21 10:41:46 CDT by Ollie Logan
--- NOTE | 2021-04-20 10:44 | EKG ---
Test Date: 2021-04-19 Test Time: 10:14:49 Patent Examiner: DEMI MEASUREMENT RESULTS: Intervals: Rate: 83 OR: 146 QRSD: 80 QT: 394 QTc: 462 [place]: P: 68 OR: 146 QRS: -5 T: 47 INTERPRETIVE STATEMENTS: Sinus rhythm with occasional premature ventricular complexes Otherwise normal ECG Compared to ECG 05/29/1999 16:54:00 Ventricular premature complex(es) now present Electronically Signed On 04-20-21 10:41:58 CDT by Ollie Logan
== END 2021-04-19 13:48 | disposition home or self-care (01) ==
LOC: ER 10:06
DX: I49.3 Ventricular premature depolarization (principal); I48.91 Unspecified atrial fibrillation; E78.00 Pure hypercholesterolemia, unspecified
CPT/HCPCS: 36415; 71045; 80048; 80076; 83735; 83880; 84484; 85025; 85610; 93005; 99285